=== PATIENT | female | born 1980 | race Asian ===

== ENCOUNTER 2024-09-06 09:54 | Emergency (ER) | payer OTHER ==
[~2024-09-06] VITALS: Ht 154.9 cm; Wt 97.7 kg
[~2024-09-06 09:54] MED LIST: METHYLDOPA; PREN1TAB52 PO
[2024-09-06 10:06] VITALS: TEMP 98
[2024-09-06] MEDS ORDERED: LISI-892 PO (10:08)
[2024-09-06] MEDS ORDERED: HYDR25TA2 PO (10:08)
[2024-09-06 11:18] VITALS: BP 175/100; PULSE 74; RESP 16; O2SAT 99
[2024-09-06 12:20] LABS: ANION GAP 8 mmol/L (8-16); CALCIUM, TOTAL 8.6 mg/dL (8.8-10.5); CARBON DIOXIDE 26 mmol/L (22-29); CHLORIDE 105 mmol/L (98-107); CREATININE 0.82 mg/dL (0.60-1.30); EOSINOPHILS % (AUTO) 1.7 % (1.0-6.0); GLOMERULAR FILTR. RATE CALC > 60 mL/min (>60); GLUCOSE,RANDOM 84 mg/dL (70-110); HEMOGLOBIN 14.4 g/dL (12.0-16.0); LYMPHOCYTES # (AUTO) 2.3 K/uL (1.0-4.8); LYMPHOCYTES % (AUTO) 28.5 % (22.0-44.0); MEAN CORPUSCULAR HEMOGLOBIN 27.3 pg (26.0-34.0); MEAN CORPUSCULAR HGB CONC 32.7 G/dL (31.0-37.0); MEAN CORPUSCULAR VOLUME 84 fL (80-100); MONOCYTES # (AUTO) 0.5 K/uL (0.1-1.0); MONOCYTES % (AUTO) 6.6 % (2.0-9.0); NEUTROPHILS % (AUTO) 62.2 % (40.0-70.0); POTASSIUM 4.2 mmol/L (3.5-5.1); RED BLOOD CELL COUNT(AUTO) 5.27 MIL/uL (4.00-5.20); RED CELL DISTRIBUTION WIDTH 15.8 % (11.5-14.5); SODIUM SERUM 139 mmol/L (136-145); UREA NITROGEN, BLOOD 11 mg/dL (7-18)
[2024-09-06 12:40] LABS: PLATELET COUNT (AUTO) 288 K/uL (150-450)
[2024-09-06] MEDS ORDERED: LISI30TA4 PO (13:39)
[2024-09-06] MEDS ORDERED: TIRZ15PE3 SQ (13:39)
[2024-09-06] MEDS ORDERED: HYDR25TA PO (13:39)
== END 2024-09-06 13:44 | disposition home or self-care (01) ==
LOC: EMS 09:54
DX: K62.5 Hemorrhage of anus and rectum (principal); I10 Essential (primary) hypertension; Z79.899 Other long term (current) drug therapy
CPT/HCPCS: 80048; 85025; 99283